=== PATIENT | female | born 1985 | race Caucasian/White ===

== ENCOUNTER 2021-11-29 14:40 | Emergency (ER) | payer BC ==
[~2021-11-29] VITALS: Ht 172.7 cm; Wt 110.7 kg
[2021-11-29 15:26] VITALS: BP 128/84
--- NOTE | 2021-11-29 16:13 | ER.PDOC ---
General Chief Complaint: Extremities Stated Complaint: LEFT ANKLE INJURY TRAVEL OUT OF US: No Time seen by MD: 15:40 Source: patient Exam Limitations: no limitations History of Present Illness Initial Comments 36-year-old female comes here with pain in the left ankle. She lost her footing while stepping on a step and fell and twisted her ankle. She is got pain on the lateral aspect. No obvious hematoma but no laceration. Pain is worse with range of motion and weightbearing. She did not take any pain medication for this at home. The event took place roughly less than 1 hour prior to arrival. Denies pain anywhere else. Allergies: Coded Allergies: No Known Allergies (Unverified , 11/29/21) Past Medical History Medical History: no pertinent history Surgical History: cholecystectomy, hysterectomy LMP (females 10-50): N/A Not applicalbe Family History Significant Family History: no pertinent family hx Social History Smoking: non-smoker Alcohol Use: none Drug Use: none Reviewed Nursing Reviewed: Vital Signs, Abn. Noted, Nursing Assessment Review of Systems Constitutional: denies no symptoms reported, denies see HPI, denies chills, denies diaphoresis, denies fever, denies malaise, denies weakness, denies other EENTM: denies no symptoms reported, denies see HPI, denies eye pain, denies blurred vision, denies tearing, denies double vision, denies ear pain, denies ear discharge, denies nose pain, denies nose congestion, denies throat pain, denies throat swelling, denies mouth pain, denies mouth swelling, denies other Respiratory: denies no symptoms reported, denies see HPI, denies cough, denies orthopnea, denies shortness of breath, denies stridor, denies wheezing, denies other Cardiovascular: denies no symptoms reported, denies see HPI, denies chest pain, denies edema, denies palpitations, denies syncope, denies other Gastrointestinal: denies no symptoms reported, denies see HPI, denies abdominal pain, denies constipation, denies diarrhea, denies nausea, denies vomiting, denies other Genitourinary: denies no symptoms reported, denies see HPI, denies discharge, denies dysuria, denies frequency, denies hematuria, denies pain, denies other Musculoskeletal: denies no symptoms reported, denies see HPI, denies back pain, denies gout; joint pain, joint swelling; denies muscle pain, denies muscle stiffness, denies neck pain, denies other Skin: denies no symptoms reported, denies see HPI, denies change in color, denies change in hair/nails, denies dryness, denies lesions, denies lumps, denies rash, denies other Psychiatric/Neurological: denies no symptoms reported, denies see HPI, denies anxiety, denies depressed, denies emotional problems, denies headache, denies numbness, denies paresthesia, denies pre-existing deficit, denies seizure, denies tingling, denies tremors, denies weakness, denies other Hematologic/Lymphatic: denies no symptoms reported, denies see HPI, denies anemia, denies blood clots, denies easy bleeding, denies easy bruising, denies swollen glands, denies other Immunological/Allergic: denies no symptoms reported, denies see HPI, denies food allergy, denies grass allergy, denies mold allergy, denies pollen allergy, denies HIV/AIDS, denies transplant All Other Systems: Reviewed and Negative Physical Exam General Appearance: No Apparent Distress, WD/WN EENT: eyes nml inspection, nml ENT inspection Neck: Non-Tender, Full Range of Motion Respiratory: chest non-tender, lungs clear CVS: reg rate & rhythm, no murmur Gastrointestinal: Normal Bowel Sounds Extremities: Other (Left ankle swollen with some mild medial deviation. 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 Patient will be given analgesics and then discharged home. ER DEPART Departure Time of Disposition: 16:29 Disposition: 01 HOME / SELF CARE / HOMELESS Impression: Primary Impression: Left ankle sprain Additional Impression: Contusion of right knee Condition: Stable Referrals: TOÑO LOWE MD (PCP) PRIMARY CARE PROVIDER Additional Instructions: Take Tylenol and or Motrin as needed for pain Ice to the affected area over the first 24 hours Elevate the ankle as much as possible As the pain subsides start range of motion exercises until back to normal Follow-up with your doctor soon as possible Return to the hospital if any new symptoms develop Duration or Time Spent with Pa: 25 Return to Work/School Can a patient return to work?: No (Return to work on 12/04/2021) Problem Qualifiers CARTER ROMO MD Nov 29, 2021 16:13
--- NOTE | 2021-11-29 16:18 | DIREP ---
PROCEDURE:XRAY ANKLE MIN 3VWS-LT COMPARISON:None. INDICATIONS:PAIN FINDINGS: BONES:Minimal plantar calcaneal spurring. Small well corticated ossific densities distal to the medial malleolus that could be the sequela of prior avulsion or ligamentous calcifications. No acute deformities. JOINTS:Normal. SOFT TISSUES:Normal. OTHER:No additional findings. CONCLUSION: 1. Minimal plantar calcaneal spurring. No acute deformities. 2. Small well corticated ossific densities distal to the medial malleolus that could be the sequela of prior avulsion or ligamentous calcifications. Dictated by: Robles Lucas MD on 11/29/2021 at 04:15 PM
[2021-11-29] MEDS ORDERED: TORADOL ONE (16:35)
[2021-11-29] MEDS ORDERED: TYLENOL #3 PO ONE (16:35)
[2021-11-29] MEDS: TYLENOL #3 PO ONE (16:40)
[2021-11-29] MEDS: TORADOL IM ONE (16:40)
[2021-11-29 16:45] VITALS: BP 128/84
== END 2021-11-29 16:45 | disposition home or self-care (01) ==
LOC: EDBD 14:40 → ER 14:40
DX: S93.402A Sprain of unspecified ligament of left ankle, initial encounter (principal); S80.01XA Contusion of right knee, initial encounter; X50.1XXA Overexertion from prolonged static or awkward postures, initial encounter; Y93.89 Activity, other specified; Y92.89 Other specified places as the place of occurrence of the external cause; Y99.8 Other external cause status; Z90.49 Acquired absence of other specified parts of digestive tract; Z90.710 Acquired absence of both cervix and uterus
CPT/HCPCS: 99284; 96372; 73610; J1885; J3490